=== PATIENT | male | born 1970 | race Caucasian/White ===

== ENCOUNTER 2025-05-22 12:42 | Outpatient (CLI) | payer OTHER | END 2025-05-22 12:43 | disposition home or self-care (01) | LOC: CSHRAD 12:42 | PROVIDERS: ATTEND Nurse Practitioner Family | DX: M54.50 Low back pain, unspecified (principal); M25.571 Pain in right ankle and joints of right foot; M25.551 Pain in right hip; M51.379 Other intervertebral disc degeneration, lumbosacral region without mention of lumbar back pain or lower extremity pain; M47.816 Spondylosis without myelopathy or radiculopathy, lumbar region | CPT/HCPCS: 72100; 72170 ==